=== PATIENT | female | born 1945 | race Caucasian/White ===

== ENCOUNTER 2023-10-25 17:15 | Emergency (ER) | payer BC, MEDICAID ==
[~2023-10-25] VITALS: Ht 170.2 cm; Wt 80.0 kg
[2023-10-25 17:21] VITALS: O2SAT 98
[2023-10-25] MEDS ORDERED: ACETAMINOPHEN 325MG TABLET PO ONE (17:45)
[2023-10-25] MEDS ORDERED: TOPUD MT (19:40)
[2023-10-25] MEDS ORDERED: IBUP-1525 MT (19:40)
[2023-10-25] MEDS: ACETAMINOPHEN 325MG TABLET PO NR (19:45)
[2023-10-25 20:18] VITALS: BP 144/94; PULSE 99; RESP 19; TEMP 36.94740; O2SAT 98
== END 2023-10-25 20:19 | disposition home or self-care (01) ==
LOC: ER 17:15
DX: S01.81XA Laceration without foreign body of other part of head, initial encounter (principal); E11.9 Type 2 diabetes mellitus without complications; I10 Essential (primary) hypertension; W01.0XXA Fall on same level from slipping, tripping and stumbling without subsequent striking against object, initial encounter; Y93.89 Activity, other specified; Y92.89 Other specified places as the place of occurrence of the external cause; Y99.8 Other external cause status
CPT/HCPCS: 12011; 99284